=== PATIENT | female | born 1990 | race African-American/Black ===

== ENCOUNTER 2016-08-21 15:23 | Emergency (ER) | payer OTHER ==
[~2016-08-21] VITALS: Ht 165.1 cm; Wt 123.6 kg
[2016-08-21 15:31] VITALS: BP 166/99
[2016-08-21] MEDS ORDERED: KEPPRA1000 MG PO (15:36)
[2016-08-21] MEDS ORDERED: HYDROCHLOROTH12.5 M2 PO (15:36)
[2016-08-21] MEDS ORDERED: IRON90 MG (15:36)
[2016-08-21] MEDS ORDERED: POTASSIUM GLUC550 M1 (15:36)
[2016-08-21] MEDS ORDERED: PROVIGIL200 M1 PO (15:36)
== END 2016-08-21 16:14 | disposition home or self-care (01) ==
LOC: ED 15:23
DX: S05.02XA Injury of conjunctiva and corneal abrasion without foreign body, left eye, initial encounter (principal); S00.252A Superficial foreign body of left eyelid and periocular area, initial encounter; I10 Essential (primary) hypertension

== ENCOUNTER → 2016-08-21 | Outpatient (CLI) | payer OTHER ==
[~2016-08-21] MED LIST: HYDROCHLOROTH12.5 M2 PO; IRON90 MG; KEPPRA1000 MG PO; POTASSIUM GLUC550 M1; PROVIGIL200 M1 PO
[2016-08-21 15:31] VITALS: BP 166/99
== END ==
LOC: LAB 16:09
DX: Z02.83 Encounter for blood-alcohol and blood-drug test (principal)